=== PATIENT | female | born 1965 | race Caucasian/White ===

== ENCOUNTER 2020-05-04 13:33 | Emergency (ER) | payer SELFPAY ==
[~2020-05-04] VITALS: Ht 157.5 cm; Wt 68.7 kg
[~2020-05-04 13:33] MED LIST: CYCL-259 PO; DIAZ5TAB PO; HYDR2TAB29 PO; HYDROMORPHONE PO; LEVO750T26 PO; METH10TA2 PO; METH5TAB2 PO; OXYC-302 PO; VALA500T4 PO
--- NOTE | 2020-05-04 14:40 | NUR ---
PATIENT WHEELED BACK FROM TRIAGE WITH CHIEF C/O COUGH AND BODY ACHES. PATIENT STATES BODY ACHES STARTED THE BEGINNING OF LAST WEEK, AND GOT PROGRESSIVELY WORSE. PATIENT ALSO HAS SOB, FEVER, CHILLS X1 WEEK. PATIENT STARTED HAVING DIARRHEA TUESDAY. PATIENT REPORTS NOT BEING ABLE TO GET O2 SATURATION ABOVE 88% AT HOME. PATIENT CONNECTED TO VITALS MACHINE, NO SIGNS OF ACUTE DISTRESS, O2 SATURATION IS 94% ON RA, CALL LIGHT WITHIN REACH.
--- NOTE | 2020-05-04 14:48 | NUR ---
ERMD AT BEDSIDE FOR EVALUATION.
--- NOTE | 2020-05-04 15:31 | NUR ---
PATIENT RESTING IN GURNEY, CONNECTED TO VITALS MACHINE, NO SIGNS OF ACUTE DISTRESS, CALL LIGHT WITHIN REACH.
[2020-05-04 16:13] VITALS: BP 111/67
--- NOTE | 2020-05-04 16:37 | NUR ---
Patient given discharge instructions and they have confirmed that they understand the instructions. Patient in stable condition ambulatory with steady gait from ED to private vehicle.
== END 2020-05-04 16:38 | disposition home or self-care (01) ==
LOC: ED 15:23
DX: J18.9 Pneumonia, unspecified organism (principal); I51.7 Cardiomegaly; R94.39 Abnormal result of other cardiovascular function study; J45.909 Unspecified asthma, uncomplicated
CPT/HCPCS: 71045; 93005; 99283